=== PATIENT | female | born 1950 | race Caucasian/White ===

== ENCOUNTER 2019-09-23 10:36 | Outpatient (CLI) | payer MEDICARE, SELFPAY ==
--- NOTE | ~2019-09-23 | MM_ITS ---
EXAMINATION: MM screening [facility] BI w altagracia HISTORY: Screening mammogram TECHNIQUE: Craniocaudal and mediolateral oblique 3-D tomosynthesis images were obtained and synthetic 2-D images were generated. CAD analysis was submitted and interpreted. COMPARISON: 6 09/27/2007 bilateral digital screening mammogram BREAST PARENCHYMAL COMPOSITION: There are scattered areas of fibroglandular density. FINDINGS: Scattered benign calcifications. There is no evidence of suspicious mass, calcification, or architectural distortion to suggest malignancy in either breast. There has been no suspicious interv al change. IMPRESSION: 1. No mammographic evidence of malignancy. 2. Recommend routine screening mammography in one year. BI-RADS Category 2: Benign finding(s). Reviewed, dictated and finalized at location A.
== END 2019-09-23 10:37 | disposition home or self-care (01) ==
PROVIDERS: PCP Internal Medicine; Visit Provider Physician Assistant
DX: Z12.31 Encounter for screening mammogram for malignant neoplasm of breast (principal)
CPT/HCPCS: 77063; 77067

== ENCOUNTER 2019-11-06 16:17 | Emergency (ER) | payer MEDICARE, SELFPAY ==
[2019-11-06 16:26] VITALS: BP 155/89; PULSE 98; RESP 16; TEMP 36.3; O2SAT 99
--- NOTE | 2019-11-06 16:26 | ED.SKABFB ---
HPI - Skin/Abscess/Foreign Bdy General Chief complaint: Skin/Abscess/Foreign Body Stated complaint: itchy Time Seen by Provider: 11/06/19 16:33 Source: patient and RN notes reviewed Mode of arrival: ambulatory Limitations: no limitations History of Present Illness HPI narrative: 69-year-old female presents with concern for generalized itching. Reports a history of intermittent chronic itching. Reports she has had multiple work-ups, has found no cause. Reports she has had allergy tests, and has had found no triggers. She denies any hives, swollen lips, swollen tongue, difficulty breathing, difficulty swallowing. Denies fever, nausea, vomiting. MD complaint: other (Pruritus) Related Data Home Medications Medication Instructions Recorded Confirmed glimepiride 2 mg PO BID 01/04/19 01/04/19 metformin 1,000 mg PO BID 01/04/19 01/04/19 omeprazole 40 mg PO DAILY 01/04/19 01/04/19 aspirin 81 mg PO DAILY 11/06/19 11/06/19 tramadol 11/06/19 Allergies Allergy/AdvReac Type Severity Reaction Status Date / Time RAJEEV Inhibitors Allergy Unknown Unknown Verified 01/06/19 08:59 Ccpmwbm-Stc-Jdh Reductase Allergy Unknown Unknown Verified 01/06/19 08:59 Inhibitor Sulfa (Sulfonamide Allergy Unknown Unknown Verified 01/06/19 08:59 Antibiotics) morphine AdvReac Severe NAUSEA AND Verified 01/06/19 08:59 VOMITING erythromycin base AdvReac Mild Nausea and Verified 01/06/19 08:59 Vomiting Review of Systems Review of Systems: Narrative: CONSTITUTIONAL: Denies malaise, chills, sweats, or fever. EYES: Denies visual changes ENT: Denies swollen lips, swollen tongue CARDIOVASCULAR: Denies chest pain, palpitations, or edema. RESPIRATORY: Denies cough or dyspnea. GASTROINTESTINAL: Denies nausea, vomiting, diarrhea SKIN: Denies rash, reports generalized itching. MUSCULOSKELETAL: Denies myalgia. All systems reviewed & are unremarkable except as noted in HPI and below PMFSH Social History Social History Smoking status: Never smoker Alcohol intake: current Comments At time of signature, agree with nursing past medical, surgical, social and family history. There is no relevant family history pertinent to the presenting complaint Exam Narrative: Exam Narrative: GENERAL: Well-appearing, well-nourished, and in no acute distress. HEAD: Normocephalic, atraumatic. EYES: PERRLA, conjunctivae clear ENT: Nares clear. Mucous membranes moist. Oropharynx without edema, erythema or lesions. NECK: Supple. No lymphadenopathy. CHEST: No respiratory distress. Clear to auscultation. No bony deformities, no asymmetry. Speaks in full sentences. HEART: Regular rate and rhythm. No murmur heard. SKIN: Warm, dry, no rash. NEURO: Alert and oriented x3. PSYCH: Normal mood and affect Course Course Emergency Course: Patient is aware of diagnosis, understands and agrees to treatment plan. Anticipatory guidance given. Patient agrees to follow-up as directed and is aware of reasons to seek care at the emergency department. Portions of this record may have been created with voice recognition software Vital Signs Vital signs: Reviewed. MDM - Skin/Abscess/Foreign Bdy MDM Narrative Medical decision making narrative: Does not appear at this time to be erythema multiforme, bullous, SJS, TEN; no evidence at this time to suggest RMSF, endocarditis or Lyme disease; patient looks well, nontoxic and is tolerating oral intake; no neurologic signs or symptoms; no headache, photophobia or neck pain; afebrile; appropriate for initial outpatient treatment; discussed the importance of follow-up, patient agrees; question, viral exanthema, contact dermatitis, allergic dermatitis, eczema, urticaria, pruritus. No soft palate or uvula edema, no tongue, lip edema or other mucosal involvement, no respiratory compromise, no stridor, no wheezing, no wheezing, no history of syncope, no hypotension, no nausea, vomiting, or
[2019-11-06] MEDS: methylPREDNISolone SOD SUCC 125 MG VIAL IM (16:44)
== END 2019-11-06 17:04 | disposition home or self-care (01) ==
PROVIDERS: Emergency Provider Nurse Practitioner; PCP Physician Assistant
DX: L29.8 Other pruritus (principal); I10 Essential (primary) hypertension; E11.9 Type 2 diabetes mellitus without complications; Z79.84 Long term (current) use of oral hypoglycemic drugs
CPT/HCPCS: 96372; 99213; G0463; J2930

== ENCOUNTER 2020-02-10 12:18 | Outpatient (CLI) | payer MEDICARE, SELFPAY ==
--- NOTE | 2020-02-10 | ECHO_ITS ---
Patient Info Name: Heather Palmer Age: 69 years : 1950 Gender: Female Ht: 62 in Wt: 170 lbs BSA: 1.87 m2 HR: 76 bpm BP: 190 / 112 mmHg Heart Rhythm: Sinus Rhythm Technical Quality: Good Exam Date: 02/10/2020 1:18 PM Exam Location: [facility] Patient Status: Outpatient Admit Date: 02/10/2020 Staff Ordering Physician: GuevaraReyna PA-C Line Mover: Ehsan Quintanilla, JOHN, RT Attending Provider: Carlos AReyna PA-C Exam Type: CA echo doppler color flow Study Info Indications R01.1 - Cardiac murmur, unspecified Complete two-dimensional, color flow and Doppler transthoracic echocardiogram is performed. Summary 1. Complete two-dimensional, color flow and Doppler transthoracic echocardiogram is performed. 2. Left ventricular chamber dimension is normal. 3. Left ventricular systolic function is normal, estimated at 60-65%. 4. There is mildly increased left ventricular wall thickness. 5. The left ventricular diastolic function is grade I diastolic dysfunction. 6. Left atrial chamber dimension is mildly enlarged. 7. There is mild aortic valve stenosis with a peak velocity of 147 cm/s, mean gradient of 5 mmHg, and aortic valve area of 1.8 cm2. 8. There is mild to moderate aortic valve regurgitation. 9. There is mild mitral valve regurgitation. 10. There is mild tricuspid valve regurgitation. Left Ventricle Left ventricular chamber dimension is normal. Left ventricular systolic function is normal, estimated at 60-65%. There is mildly increased left ventricular wall thickness. The left ventricular diastolic function is grade I diastolic dysfunction. Right Ventricle Right ventricular chamber dimension is normal. Right ventricular systolic function is normal. Left Atria Left atrial chamber dimension is mildly enlarged. Right Atria Right atrial chamber dimension is normal. Atrial Septum Intact interatrial septum visualized by color flow imaging. Aortic Valve The aortic valve is not well visualized. There is mild aortic valve stenosis with a peak velocity of 147 cm/s, mean gradient of 5 mmHg, and aortic valve area of 1.8 cm2. There is mild to moderate aortic valve regurgitation. Pulmonic Valve The pulmonic valve is normal. There is no pulmonic valve stenosis. There is trace pulmonic regurgitation. Mitral Valve The mitral valve has normal leaflets. There is no mitral valve stenosis. There is mild mitral valve regurgitation. Tricuspid Valve The tricuspid valve leaflets are normal. There is no significant tricuspid valve stenosis. There is mild tricuspid valve regurgitation. No pulmonary hypertension, estimated pulmonary arterial systolic pressure is 28 mmHg. Pericardium/Pleural The pericardium appears normal. There is trivial pericardial effusion. Inferior Vena Cava Normal inferior vena cava with >50% collapse upon inspiration consistent with normal right atrial pressure, 5 mmHg. Aorta The aortic root size at the sinus of Valsalva is normal. The prox ascending aorta size is normal. Left Ventricular Outflow Tract Name Value Normal LVOT 2D LVOT Diameter 1.9 cm LVOT Doppler
== END 2020-02-10 12:19 | disposition home or self-care (01) ==
PROVIDERS: PCP Physician Assistant; Visit Provider Physician Assistant
DX: R01.1 Cardiac murmur, unspecified (principal); I34.0 Nonrheumatic mitral (valve) insufficiency; I35.1 Nonrheumatic aortic (valve) insufficiency; I36.1 Nonrheumatic tricuspid (valve) insufficiency
CPT/HCPCS: 93306

== ENCOUNTER 2020-05-08 11:29 | Emergency (ER) | payer MEDICARE, SELFPAY ==
--- NOTE | ~2020-05-08 | XR_ITS ---
EXAMINATION: XR knee LT min 4V, XR tibia fibula LT 2V EXAM DATE: 05/08/2020 12:34 (accession [id number]), 05/08/2020 12:35 (accession [id number]) INDICATION: Fall, lt knee pain . Initial encounter. TECHNIQUE: Left knee frontal, crosstable lateral, orthogonal oblique projections for interpretation. Frontal and lateral projections left tibia/fibula. Comparison is made to prior examination from . FINDINGS: There is total left knee arthroplasty hardware in expected position. Possible small joint effusion. There are no acute knee, tibia or fibula fractures or dislocations identified. There is no subcutaneous gas. IMPRESSION: Intact left knee arthroplasty. Possible small knee joint effusion. Reviewed, dictated and finalized at location A. IMPRESSION: Intact left knee arthroplasty. Possible small knee joint effusion.
[2020-05-08 11:53] VITALS: BP 147/98; PULSE 89; RESP 18; TEMP 36.2; O2SAT 100
--- NOTE | 2020-05-08 12:14 | ED.GENADULT ---
HPI - General Adult General Chief complaint: Extremity Injury, Lower Stated complaint: Left Calf Pain Time Seen by Provider: 05/08/20 12:14 Source: patient Mode of arrival: ambulatory Limitations: no limitations History of Present Illness HPI narrative: 70-year-old female patient presents to the [facility] with complaints of left leg pain. Patient states this morning about 8 AM her dog tripped her and she fell down 8 or 9 steps. Denies hitting her head or loss of consciousness. Patient states she has been having some left calf pain since then. Patient states she did try taking some tramadol that she had had at home as well as icing it. Related Data Home Medications Medication Instructions Recorded Confirmed glimepiride 2 mg PO BID 01/04/19 05/08/20 metformin 1,000 mg PO BID 01/04/19 05/08/20 omeprazole 40 mg PO DAILY 01/04/19 05/08/20 aspirin 81 mg PO DAILY 11/06/19 05/08/20 tramadol 11/06/19 Allergies Allergy/AdvReac Type Severity Reaction Status Date / Time RAJEEV Inhibitors Allergy Unknown Unknown Verified 05/08/20 11:44 Ukpvelq-Nli-Ups Reductase Allergy Unknown Unknown Verified 05/08/20 11:44 Inhibitor Sulfa (Sulfonamide Allergy Unknown Unknown Verified 05/08/20 11:44 Antibiotics) morphine AdvReac Severe NAUSEA AND Verified 05/08/20 11:44 VOMITING erythromycin base AdvReac Mild Nausea and Verified 05/08/20 11:44 Vomiting Review of Systems Review of Systems: Narrative: CONSTITUTIONAL: Denies fever, chills, or sweats. EYES: Denies visual changes, redness, or discharge. ENT: Denies rhinorrhea, congestion, sore throat, or otalgia. CARDIOVASCULAR: Denies chest pain, palpitations, or edema. RESPIRATORY: Denies cough or dyspnea. GASTROINTESTINAL: Denies abdominal pain, nausea, vomiting, or diarrhea. GENITOURINARY: Denies dysuria or hematuria. SKIN: Denies rash or itching. MUSCULOSKELETAL: Denies back pain, joint pain, or myalgia. Positive left leg pain. NEUROLOGIC: Denies headache, numbness, or weakness. PSYCHIATRIC: Denies anxiety or depression. [facility] Past Medical History Medical History (Updated 05/08/20 @ 12:54 by GRAHAM Duque) Anemia DDD (degenerative disc disease) Depression Diabetes mellitus GERD (gastroesophageal reflux disease) HLD (hyperlipidemia) HTN (hypertension) Osteoarthritis Seasonal allergies Ulcer Surgical History Surgical History H/O arthroscopy of left knee H/O basal cell carcinoma excision H/O colonoscopy H/O spinal fusion H/O: hysterectomy History of bilateral knee replacement History of bladder surgery History of laminectomy Hx of appendectomy Hx of cholecystectomy Hx of tonsillectomy Family History Family History Mother Family history of diabetes mellitus in first degree relative Family history of lung cancer Father Family history of lung cancer Social History Social History Smoking status: Never smoker Alcohol intake: current Gender identity (if verbalized by the patient): Female Comments At the time of my signature I agree with nursing past medical history, surgical, social, and family history. There is no relevant family history pertinent to the presenting complaint. Exam Narrative: Exam Narrative: GENERAL: Well-appearing, well-nourished, and in no acute distress. HEAD: Normocephalic, atraumatic. EYES: PERRLA and EOMI. ENT: Nares clear, no rhinorrhea or epistaxis. Mucous membranes moist. NECK: Supple. No lymphadenopathy CHEST: Clear to auscultation. No respiratory distress. HEART: Regular rate and rhythm. No murmur heard. Normal peripheral pulses. ABDOMEN: Soft, nontender, nondistended, normal active bowel sounds. EXTREMITIES: Patient is able to bear weight and ambulate with pain left lower leg. No surface trauma, STS, or obvious effusion. No overlying erythema or war
== END 2020-05-08 12:58 | disposition home or self-care (01) ==
PROVIDERS: Emergency Provider Nurse Practitioner Family; PCP Physician Assistant
DX: M79.662 Pain in left lower leg (principal); M25.462 Effusion, left knee; Z96.653 Presence of artificial knee joint, bilateral; E11.9 Type 2 diabetes mellitus without complications; K21.9 Gastro-esophageal reflux disease without esophagitis; E78.5 Hyperlipidemia, unspecified; I10 Essential (primary) hypertension; M19.90 Unspecified osteoarthritis, unspecified site
CPT/HCPCS: 73564; 73590; 99214; G0463

== ENCOUNTER 2020-05-10 10:24 | Outpatient (CLI) | payer MEDICARE, SELFPAY ==
--- NOTE | ~2020-05-10 | US_ITS ---
EXAMINATION: US venous doppler [facility] EXAM DATE: 05/10/2020 10:56 INDICATION: Left calf pain. TECHNIQUE: Multiple grayscale, color flow and Doppler images of the left lower extremity deep venous system were obtained and reviewed. Comparison is made to prior examination from 02/19/2015. FINDINGS: The left common femoral, femoral and profunda veins demonstrate normal color flow, respirat ory variation, augmentation and compressibility. Compressibility, color flow confirmed within the le ft popliteal, posterior tibial, peroneal, and greater saphenous veins. IMPRESSION: 1. No left lower extremity deep venous thrombosis. Reviewed, dictated and finalized at location A.
== END 2020-05-10 10:25 | disposition home or self-care (01) ==
PROVIDERS: PCP Physician Assistant; Visit Provider Physician Assistant
DX: M79.662 Pain in left lower leg (principal)
CPT/HCPCS: 93971

== ENCOUNTER 2020-08-17 13:20 | Emergency (ER) | payer MEDICARE, SELFPAY ==
[2020-08-17 13:29] VITALS: BP 153/94; PULSE 73; RESP 16; TEMP 36.5; O2SAT 99
--- NOTE | 2020-08-17 14:03 | ED.URI ---
HPI - URI/Sore Throat General Chief Complaint: Upper Respiratory Infection Stated Complaint: sinus infection Time Seen by Provider: 08/17/20 13:38 Source: patient and RN notes reviewed Mode of arrival: ambulatory Limitations: no limitations History of Present Illness HPI Narrative: Patient presents today with a 2-day history of sinus pressure, productive cough, eye watering, headache, postnasal drip, ear popping. Denies shortness of breath or fever. She has been taking ibuprofen, Benadryl, and Flonase. Reports the Flonase is not helping her much and the Benadryl is providing some mild relief. She is getting ready to go on vacation in a couple of days and believes that she may have a sinus infection and wanted to get started on some antibiotics if she needed them. Related Data Home Medications Medication Instructions Recorded Confirmed metformin 1,000 mg PO BID 01/04/19 05/08/20 omeprazole 40 mg PO DAILY 01/04/19 05/08/20 duloxetine [Cymbalta] 30 mg PO DAILY 08/17/20 08/17/20 glimepiride [Amaryl] 1 mg PO DAILY 08/17/20 08/17/20 Allergies Allergy/AdvReac Type Severity Reaction Status Date / Time RAJEEV Inhibitors Allergy Unknown Unknown Verified 05/08/20 11:44 Lbyikss-Lmv-Whi Reductase Allergy Unknown Unknown Verified 05/08/20 11:44 Inhibitor Sulfa (Sulfonamide Allergy Unknown Unknown Verified 08/17/20 13:32 Antibiotics) morphine AdvReac Severe NAUSEA AND Verified 05/08/20 11:44 VOMITING erythromycin base AdvReac Mild Nausea and Verified 05/08/20 11:44 Vomiting Review of Systems Review of Systems: Narrative: CONSTITUTIONAL: Denies body aches, fever, chills, or sweats. EYES: Denies visual changes, redness, or discharge.+ Eye watering ENT: + Sinus pressure, postnasal drip, rhinorrhea. CARDIOVASCULAR: Denies chest pain, palpitations, or edema. RESPIRATORY: Denies dyspnea.+ Cough GASTROINTESTINAL: Denies abdominal pain, nausea, vomiting, or diarrhea. GENITOURINARY: Denies dysuria or hematuria. SKIN: Denies rash, itching, or wounds. MUSCULOSKELETAL: Denies back pain, joint pain, or myalgia. NEUROLOGIC: Denies numbness, tingling, or weakness.+ Headache PSYCH: Denies depression or anxiety. PMFSH Past Medical History Medical History (Updated 08/17/20 @ 14:08 by Vanessa Barcenas, GRAHAM, ) Anemia DDD (degenerative disc disease) Depression Diabetes mellitus GERD (gastroesophageal reflux disease) HLD (hyperlipidemia) HTN (hypertension) Osteoarthritis Seasonal allergies Ulcer Surgical History Surgical History H/O arthroscopy of left knee H/O basal cell carcinoma excision H/O colonoscopy H/O spinal fusion H/O: hysterectomy History of bilateral knee replacement History of bladder surgery History of laminectomy Hx of appendectomy Hx of cholecystectomy Hx of tonsillectomy Family History Family History Mother Family history of diabetes mellitus in first degree relative Family history of lung cancer Father Family history of lung cancer Social History Social History Smoking status: Never smoker Alcohol intake: current Gender identity (if verbalized by the patient): Female Comments At time of signature, I have reviewed and agree with nursing past medical, surgical, social and family history unless otherwise noted. Please see nursing chart for further information. There is no relevant family history pertinent to the presenting complaint Exam Narrative: Exam Narrative: GENERAL: Well-appearing, well-nourished, and in no acute distress. HEAD: Normocephalic, atraumatic. EYES: EOMI. PERRL. No redness or drainage. Conjunctivae normal. ENT: Mucous membranes pink and moist. Nares mildly congested. Bilateral nasal turbinates are slightly edematous without erythema. Moderate amount of clear thick postnasal drain
== END 2020-08-17 14:10 | disposition home or self-care (01) ==
PROVIDERS: Emergency Provider Nurse Practitioner; PCP Physician Assistant
DX: J30.9 Allergic rhinitis, unspecified (principal); F32.9 Major depressive disorder, single episode, unspecified; E11.9 Type 2 diabetes mellitus without complications; K21.9 Gastro-esophageal reflux disease without esophagitis; E78.5 Hyperlipidemia, unspecified; I10 Essential (primary) hypertension; M19.90 Unspecified osteoarthritis, unspecified site; Z96.653 Presence of artificial knee joint, bilateral; Z85.828 Personal history of other malignant neoplasm of skin
CPT/HCPCS: 99213; G0463

== ENCOUNTER 2020-10-08 15:01 | Outpatient (CLI) | payer MEDICARE, SELFPAY ==
--- NOTE | ~2020-10-08 | MM_ITS ---
EXAMINATION: MM screening [facility] BI w altagracia HISTORY: Screening mammogram TECHNIQUE: Craniocaudal and mediolateral oblique 3-D tomosynthesis images were obtained and synthetic 2-D images were generated. CAD analysis was submitted and interpreted. COMPARISON: 09/23/2019, 09/27/2007 BREAST PARENCHYMAL COMPOSITION: There are scattered areas of fibroglandular density. FINDINGS: Scattered benign-appearing calcifications are present. There is no evidence of suspicious m ass, calcification, or architectural distortion to suggest malignancy in either breast. There has bee n no suspicious interval change. IMPRESSION: 1. No mammographic evidence of malignancy. 2. Recommend routine screening mammography in one year. BI-RADS Category 2: Benign finding(s). Reviewed, dictated and finalized at location A.
== END 2020-10-08 15:02 | disposition home or self-care (01) ==
PROVIDERS: PCP Physician Assistant; Visit Provider Physician Assistant
DX: Z12.31 Encounter for screening mammogram for malignant neoplasm of breast (principal)
CPT/HCPCS: 77063; 77067

== ENCOUNTER 2020-12-30 08:03 | Emergency (ER) | payer MEDICARE, SELFPAY ==
[2020-12-30 08:15] VITALS: BP 208/76; PULSE 77; RESP 16; TEMP 37.2; O2SAT 99
--- NOTE | 2020-12-30 08:41 | ED.GENADULT ---
HPI - General Adult General Stated complaint: Under breast Pain Time Seen by Provider: 12/30/20 08:25 Source: patient and RN notes reviewed Mode of arrival: ambulatory Limitations: no limitations History of Present Illness HPI narrative: Patient presents today with a 10-day history of right upper chest pain radiating under the right breast with deep breath and movement. Denies any injury, trauma, or recent illness. She is pain-free at rest, but increases to 5/10 with movement, cough, or deep breath. Patient had a mammogram last month that was normal. Denies shortness of breath MD complaint: Chest wall pain Related Data Home Medications Medication Instructions Recorded Confirmed metformin 1,000 mg PO BID 01/04/19 12/30/20 omeprazole 40 mg PO DAILY 01/04/19 12/30/20 duloxetine [Cymbalta] 30 mg PO DAILY 08/17/20 12/30/20 glimepiride [Amaryl] 1 mg PO DAILY 08/17/20 12/30/20 Allergies Allergy/AdvReac Type Severity Reaction Status Date / Time RAJEEV Inhibitors Allergy Unknown Unknown Verified 12/30/20 08:27 Dcmbhdz-SQS-PgI Reductase Allergy Unknown Unknown Verified 12/30/20 08:27 Inhibitor [Hwegbrh-Axo-Djm Reductase Inhibitor] Sulfa (Sulfonamide Allergy Unknown Unknown Verified 12/30/20 08:27 Antibiotics) morphine AdvReac Severe NAUSEA AND Verified 12/30/20 08:27 VOMITING erythromycin base AdvReac Mild Nausea and Verified 12/30/20 08:27 Vomiting Review of Systems Review of Systems: CONSTITUTIONAL: Denies body aches, fever, chills, or sweats. EYES: Denies visual changes, redness, or discharge. ENT: Denies rhinorrhea, congestion, sore throat, or otalgia. CARDIOVASCULAR: Denies chest pain, palpitations, or edema. RESPIRATORY: Denies cough or dyspnea. GASTROINTESTINAL: Denies abdominal pain, nausea, vomiting, or diarrhea. GENITOURINARY: Denies dysuria or hematuria. SKIN: Denies rash, itching, or wounds. MUSCULOSKELETAL: Denies back pain, joint pain, or myalgia.+ Chest wall pain NEUROLOGIC: Denies headache, numbness, tingling, or weakness. PSYCH: Denies depression or anxiety. [facility], [facility] Past Medical History Medical History (Updated 12/30/20 @ 08:46 by Vanessa Barcenas, GRAHAM, ) Anemia DDD (degenerative disc disease) Depression Diabetes mellitus GERD (gastroesophageal reflux disease) HLD (hyperlipidemia) HTN (hypertension) Osteoarthritis Seasonal allergies Ulcer Surgical History Surgical History H/O arthroscopy of left knee H/O basal cell carcinoma excision H/O colonoscopy H/O spinal fusion H/O: hysterectomy History of bilateral knee replacement History of bladder surgery History of laminectomy Hx of appendectomy Hx of cholecystectomy Hx of tonsillectomy Family History Family History Mother Family history of diabetes mellitus in first degree relative Family history of lung cancer Father Family history of lung cancer Social History Social History Smoking status: Never smoker Alcohol intake: current Gender identity (if verbalized by the patient): Female Comments At time of signature, I have reviewed and agree with nursing past medical, surgical, social and family history unless otherwise noted. Please see nursing chart for further information. There is no relevant family history pertinent to the presenting complaint Exam Narrative: GENERAL: Well-appearing, well-nourished, and in no acute distress. HEAD: Normocephalic, atraumatic. EYES: EOMI. No redness or drainage. Conjunctivae normal. ENT: Mucous membranes pink and moist. NECK: Normal AROM. CHEST: No respiratory distress. Clear to auscultation. Tenderness to the superior right breast extending to the right sternal border, then under the right breast laterally. Primary tenderness is along the sternal border. No deformity or crepitus
== END 2020-12-30 08:50 | disposition home or self-care (01) ==
LOC: EXPCOLL 08:06
PROVIDERS: Emergency Provider Nurse Practitioner; PCP Physician Assistant
DX: R09.1 Pleurisy (principal); E11.9 Type 2 diabetes mellitus without complications; K21.9 Gastro-esophageal reflux disease without esophagitis; E78.5 Hyperlipidemia, unspecified; I10 Essential (primary) hypertension; M19.90 Unspecified osteoarthritis, unspecified site; F32.A Depression, unspecified; Z96.653 Presence of artificial knee joint, bilateral; Z85.828 Personal history of other malignant neoplasm of skin
CPT/HCPCS: 99211; G0463

== ENCOUNTER 2021-03-04 09:46 | Emergency (ER) | payer MEDICARE, SELFPAY ==
[2021-03-04 09:55] VITALS: BP 184/82; PULSE 72; RESP 18; TEMP 35.9; O2SAT 100
--- NOTE | 2021-03-04 10:25 | ED.SKABFB ---
HPI - Skin/Abscess/Foreign Bdy General Chief complaint: Skin/Abscess/Foreign Body Stated complaint: rash Source: patient Mode of arrival: ambulatory Limitations: no limitations History of Present Illness HPI narrative: 70-year-old female presenting for complaint of itching all over her body since yesterday. She endorses extra histamines and has been seen in the past by an fire code inspector. She currently denies any rash or lesions to her skin. She states she thinks her eyes are swollen and have closed up in the past. Endorses lips feel numb. No lip swelling, tongue swelling, or difficulty breathing reported. hx drug allergies. States she takes Atarax sometimes. denies change to soap, detergent, lotion, meds etc. Related Data Home Medications Medication Instructions Recorded Confirmed metformin 1,000 mg PO BID 01/04/19 03/04/21 omeprazole 40 mg PO DAILY 01/04/19 03/04/21 duloxetine [Cymbalta] 30 mg PO DAILY 08/17/20 03/04/21 glimepiride [Amaryl] 1 mg PO DAILY 08/17/20 03/04/21 Allergies Allergy/AdvReac Type Severity Reaction Status Date / Time RAJEEV Inhibitors Allergy Unknown Unknown Verified 03/04/21 10:10 Fhgsksi-ISB-DeB Reductase Allergy Unknown Unknown Verified 03/04/21 10:10 Inhibitor [Tzmqpxf-Yvu-Fwr Reductase Inhibitor] Sulfa (Sulfonamide Allergy Unknown Unknown Verified 03/04/21 10:10 Antibiotics) morphine AdvReac Severe NAUSEA AND Verified 03/04/21 10:10 VOMITING erythromycin base AdvReac Mild Nausea and Verified 03/04/21 10:10 Vomiting Review of Systems Review of Systems: CONSTITUTIONAL: Denies body aches, fever, chills, or sweats. EYES: Denies visual changes, redness, or discharge. ENT: Denies rhinorrhea, congestion, sore throat, or otalgia. CARDIOVASCULAR: Denies chest pain, palpitations, or edema. RESPIRATORY: Denies cough or dyspnea. GASTROINTESTINAL: Denies abdominal pain, nausea, vomiting, or diarrhea. GENITOURINARY: Denies dysuria or hematuria. SKIN: endorses rash, itching MUSCULOSKELETAL: Denies back pain, joint pain, or myalgia. NEUROLOGIC: Denies headache, numbness, tingling, or weakness. PSYCH: Denies depression or anxiety. [facility] Past Medical History Medical History Anemia DDD (degenerative disc disease) Depression Diabetes mellitus GERD (gastroesophageal reflux disease) HLD (hyperlipidemia) HTN (hypertension) Osteoarthritis Seasonal allergies Ulcer Surgical History Surgical History H/O arthroscopy of left knee H/O basal cell carcinoma excision H/O colonoscopy H/O spinal fusion H/O: hysterectomy History of bilateral knee replacement History of bladder surgery History of laminectomy Hx of appendectomy Hx of cholecystectomy Hx of tonsillectomy Family History Family History Mother Family history of diabetes mellitus in first degree relative Family history of lung cancer Father Family history of lung cancer Social History Social History Smoking status: Never smoker Alcohol intake: current Gender identity (if verbalized by the patient): Female Comments At time of signature, I have reviewed and agree with nursing past medical, surgical, social and family history unless otherwise noted. Please see nursing chart for further information. There is no relevant family history pertinent to the presenting complaint Exam Narrative: GENERAL: Well-appearing, well-nourished, and in no acute distress. HEAD: Normocephalic, atraumatic. EYES: EOMI. No redness or drainage. Conjunctivae normal. ENT: Mucous membranes pink and moist. No rhinorrhea. NECK: Normal AROM. Supple. CHEST: No respiratory distress. Clear to auscultation. HEART: Regular rate and rhythm. No murmur appreciated. Normal peripheral pulses. ABDOMEN: Soft, nont
[2021-03-04] MEDS: methylPREDNISolone ACETATE 40 MG/ML VIAL IM (10:48)
== END 2021-03-04 11:02 | disposition home or self-care (01) ==
PROVIDERS: Emergency Provider Nurse Practitioner Family; PCP Physician Assistant
DX: L29.9 Pruritus, unspecified (principal); E11.9 Type 2 diabetes mellitus without complications; K21.9 Gastro-esophageal reflux disease without esophagitis; E78.5 Hyperlipidemia, unspecified; I10 Essential (primary) hypertension; M19.90 Unspecified osteoarthritis, unspecified site; Z96.653 Presence of artificial knee joint, bilateral; Z85.828 Personal history of other malignant neoplasm of skin; Z79.84 Long term (current) use of oral hypoglycemic drugs
CPT/HCPCS: 96372; 99213; G0463; J1030

== ENCOUNTER 2021-04-28 08:04 | Emergency (ER) | payer MEDICARE, SELFPAY ==
--- NOTE | 2021-04-28 08:12 | ED.URI ---
HPI - URI/Sore Throat General Chief Complaint: Upper Respiratory Infection Stated Complaint: Sinus Time Seen by Provider: 04/28/21 08:14 Source: patient, family, RN notes reviewed and old records reviewed Mode of arrival: ambulatory Limitations: no limitations History of Present Illness HPI Narrative: 71-year-old female presents to the [facility] with complaints of nasal congestion, rhinorrhea. States she did not sleep well last night due to nasal congestion. Reports that she has taken a Z-[place] at the start of these symptoms 2 weeks ago. Has not been using her Flonase. Denies any fevers, chest pain or abdominal pain. Reports having an appointment with ENT for her excess atilio YOUSSEF elicited complaint: rhinorrhea and nasal congestion Related Data Home Medications Medication Instructions Recorded Confirmed metformin 1,000 mg PO BID 01/04/19 04/28/21 omeprazole 40 mg PO DAILY 01/04/19 04/28/21 duloxetine [Cymbalta] 30 mg PO DAILY 08/17/20 04/28/21 glimepiride [Amaryl] 1 mg PO DAILY 08/17/20 04/28/21 Allergies Allergy/AdvReac Type Severity Reaction Status Date / Time RAJEEV Inhibitors Allergy Unknown Unknown Verified 04/28/21 08:45 Xmawpqb-URX-ZgG Reductase Allergy Unknown Unknown Verified 04/28/21 08:45 Inhibitor [Ttnlkbq-Nzi-Vtd Reductase Inhibitor] Sulfa (Sulfonamide Allergy Unknown Unknown Verified 04/28/21 08:45 Antibiotics) morphine AdvReac Severe NAUSEA AND Verified 04/28/21 08:45 VOMITING erythromycin base AdvReac Mild Nausea and Verified 04/28/21 08:45 Vomiting Review of Systems Review of Systems: All systems reviewed & are unremarkable except as noted in HPI and below Constitutional: Constitutional: Reports no additional constitutional complaints, Denies chills, Denies fever(s) and Denies headache(s) Eyes: Eyes: Reports no additional eye complaints ENT: Reports as per HPI, Denies vertigo, Denies dizziness, Denies headache(s), Reports nasal congestion and Denies sore throat Cardiovascular: Cardiovascular: Reports no additional cardiovascular complaints, Denies chest pain, Denies syncope, Denies rapid heart rate and Denies dyspnea Respiratory: Respiratory: Reports no additional respiratory complaints, Denies cough, Denies dyspnea and Denies wheezing Gastrointestinal: Gastrointestinal: Reports no additional gastrointestinal complaints, Denies abdominal pain, Denies diarrhea, Denies nausea and Denies vomiting Musculoskeletal: Musculoskeletal: Reports no additional musculoskeletal complaints and Denies numbness Integumentary/Breasts: Skin/Breast: Reports system reviewed and no additional complaints, except as docu Neurologic: Reports system reviewed and no additional complaints, except as documented, Denies vertigo, Denies dizziness, Denies syncope, Denies headache(s), Denies focal weakness and Denies numbness Psychiatric: Psychiatric: Reports no additional psychiatric complaints Allergic/Immunologic: Allergic/Immunologic: Reports no additional allergic/immunologic complaints and Denies wheezing PMFSH Past Medical History Medical History (Updated 04/29/21 @ 14:54 by Katalina Jon, [employer]) Anemia DDD (degenerative disc disease) Depression Diabetes mellitus GERD (gastroesophageal reflux disease) HLD (hyperlipidemia) HTN (hypertension) Osteoarthritis Seasonal allergies Ulcer Surgical History Surgical History H/O arthroscopy of left knee H/O basal cell carcinoma excision H/O colonoscopy H/O spinal fusion H/O: hysterectomy History of bilateral knee replacement History of bladder surgery History of laminectomy Hx of appendectomy Hx of cholecystectomy Hx of tonsillectomy Family History Family History Mother Family history of diabetes mellitus in first degree relative Family history of lung cancer Father Family history of lung cancer Social History Social H
[2021-04-28 08:14] VITALS: BP 179/87; PULSE 80; RESP 18; TEMP 35.8; O2SAT 100
== END 2021-04-28 08:31 | disposition home or self-care (01) ==
PROVIDERS: Emergency Provider Nurse Practitioner; PCP Physician Assistant
DX: R09.82 Postnasal drip (principal); H61.23 Impacted cerumen, bilateral; J30.89 Other allergic rhinitis; E11.9 Type 2 diabetes mellitus without complications; E78.5 Hyperlipidemia, unspecified; I10 Essential (primary) hypertension; M19.90 Unspecified osteoarthritis, unspecified site; Z96.653 Presence of artificial knee joint, bilateral; F32.A Depression, unspecified; Z79.84 Long term (current) use of oral hypoglycemic drugs
CPT/HCPCS: 99213; G0463

== ENCOUNTER 2021-07-21 11:49 | Emergency (ER) | payer MEDICARE, SELFPAY ==
[2021-07-21 12:30] VITALS: BP 224/90; PULSE 76; RESP 18; TEMP 37; O2SAT 98
--- NOTE | 2021-07-21 12:58 | ED.SKABFB ---
HPI - Skin/Abscess/Foreign Bdy General Chief complaint: Skin/Abscess/Foreign Body Stated complaint: Rash on Leg Time Seen by Provider: 07/21/21 12:58 Source: patient Mode of arrival: ambulatory Limitations: no limitations History of Present Illness HPI narrative: 71-year-old female presents with itchy rash to left lower extremity for 3 days. Denies pain. Is concerned that she has a poison benoit or poison oak. Started after doing yard work. No other symptoms. Would like a steroid shot. All systems reviewed and negative except as noted above. Related Data Home Medications Medication Instructions Recorded Confirmed metformin 500 mg tablet,extended 1,000 mg PO BID 01/04/19 07/21/21 release 24 hr omeprazole 40 mg capsule,delayed 40 mg PO DAILY 01/04/19 07/21/21 release duloxetine 30 mg capsule,delayed 30 mg PO DAILY 08/17/20 07/21/21 release (Cymbalta) glimepiride 1 mg tablet (Amaryl) 1 mg PO DAILY 08/17/20 07/21/21 Allergies Allergy/AdvReac Type Severity Reaction Status Date / Time RAJEEV Inhibitors Allergy Unknown Unknown Verified 07/21/21 12:05 Enruiiz-NHB-UkM Reductase Allergy Unknown Unknown Verified 07/21/21 12:05 Inhibitor [Vktsdca-Szr-Ivu Reductase Inhibitor] Sulfa (Sulfonamide Allergy Unknown Unknown Verified 07/21/21 12:05 Antibiotics) morphine AdvReac Severe NAUSEA AND Verified 07/21/21 12:05 VOMITING erythromycin base AdvReac Mild Nausea and Verified 07/21/21 12:05 Vomiting Review of Systems Review of Systems: CONSTITUTIONAL: Denies fever, chills, or sweats. EYES: Denies visual changes, redness, or discharge. ENT: Denies rhinorrhea, congestion, sore throat, or otalgia. CARDIOVASCULAR: Denies chest pain, palpitations, or edema. RESPIRATORY: Denies cough or dyspnea. GASTROINTESTINAL: Denies abdominal pain, nausea, vomiting, or diarrhea. GENITOURINARY: Denies dysuria or hematuria. SKIN: Reports itchy rash to left lower leg. MUSCULOSKELETAL: Denies back pain, joint pain, or myalgia. NEUROLOGIC: Denies headache, numbness, or weakness. PSYCHIATRIC: Denies anxiety or depression. All other systems reviewed are negative, except as documented in HPI. [facility] Past Medical History Medical History (Updated 07/21/21 @ 13:09 by Yana Blandon NP) Anemia DDD (degenerative disc disease) Depression Diabetes mellitus GERD (gastroesophageal reflux disease) HLD (hyperlipidemia) HTN (hypertension) Osteoarthritis Seasonal allergies Ulcer Surgical History Surgical History H/O arthroscopy of left knee H/O basal cell carcinoma excision H/O colonoscopy H/O spinal fusion H/O: hysterectomy History of bilateral knee replacement History of bladder surgery History of laminectomy Hx of appendectomy Hx of cholecystectomy Hx of tonsillectomy Family History Family History Mother Family history of diabetes mellitus in first degree relative Family history of lung cancer Father Family history of lung cancer Social History Social History Smoking status: Never smoker Alcohol intake: current Gender identity (if verbalized by the patient): Female Comments At time of signature, agree with nursing past medical, surgical, social and family history. There is no relevant family history pertinent to the presenting complaint. Exam Narrative: GENERAL: This is a well-nourished, well-developed patient, in no apparent distress. HEAD: normocephalic, atraumatic. EYES: PERRL. Sclera clear/white. Vision is grossly intact. EARS: External ears normal NOSE: External nose normal NECK: Neck supple, non-tender without lymphadenopathy, masses or thyromegaly. CARDIOVASCULAR: Regular rate and rhythm without murmurs, gallops, or rubs. RESPIRATORY: Clear to auscultation. Breath sounds equal bilaterally. No wheezes, rales, or rhonchi. SKIN
[2021-07-21] MEDS: methylPREDNISolone SOD SUCC 125 MG VIAL IM (13:16)
[2021-07-21 13:35] VITALS: BP 171/93
== END 2021-07-21 13:35 | disposition home or self-care (01) ==
PROVIDERS: Emergency Provider Nurse Practitioner Family; PCP Physician Assistant
DX: L25.9 Unspecified contact dermatitis, unspecified cause (principal); E11.9 Type 2 diabetes mellitus without complications; K21.9 Gastro-esophageal reflux disease without esophagitis; E78.5 Hyperlipidemia, unspecified; I10 Essential (primary) hypertension; M19.90 Unspecified osteoarthritis, unspecified site; Z96.653 Presence of artificial knee joint, bilateral; Z79.84 Long term (current) use of oral hypoglycemic drugs; Z85.828 Personal history of other malignant neoplasm of skin
CPT/HCPCS: 96372; 99213; G0463; J2930

== ENCOUNTER 2021-08-08 00:12 | Emergency (ER) | payer MEDICARE, SELFPAY ==
[2021-08-08 00:21] VITALS: BP 153/98; PULSE 76; RESP 18; TEMP 36.3; O2SAT 99
[2021-08-08] MEDS: methylPREDNISolone SOD SUCC 125 MG VIAL IM (01:12)
--- NOTE | 2021-08-08 01:15 | ED.ALLEREA ---
HPI - Allergic Reaction General Chief complaint: Allergic Reaction Stated complaint: allergic reaction Time Seen by Provider: 08/08/21 00:29 Source: patient Mode of arrival: ambulatory Limitations: no limitations History of Present Illness HPI narrative: 71-year-old with a history of hypertension, diabetes here with complaints of having hives on her lower extremities and head neck and on upper extremities. Patient states that she took doxycycline for cellulitis of her lower legs. Patient states that the rash on the lower extremities has markedly improved with antibiotics however she developed itching and hives with the doxycycline. She denies any shortness of breath or chest pain. MD complaint: allergic reaction Onset (ago): hour(s) (2) Exposure: medication (Doxycycline) Symptoms: rash and itching Severity: mild Treatment prior to arrival: none Previous Allergic Reaction History: none Related Data Home Medications Medication Instructions Recorded Confirmed metformin 500 mg tablet,extended 1,000 mg PO BID 01/04/19 07/21/21 release 24 hr omeprazole 40 mg capsule,delayed 40 mg PO DAILY 01/04/19 07/21/21 release duloxetine 30 mg capsule,delayed 30 mg PO DAILY 08/17/20 07/21/21 release (Cymbalta) glimepiride 1 mg tablet (Amaryl) 1 mg PO DAILY 08/17/20 07/21/21 Allergies Allergy/AdvReac Type Severity Reaction Status Date / Time RAJEEV Inhibitors Allergy Unknown Unknown Verified 07/21/21 12:05 Rcqoabo-OKM-SvW Reductase Allergy Unknown Unknown Verified 07/21/21 12:05 Inhibitor [Txuhodu-Ugn-Eng Reductase Inhibitor] Sulfa (Sulfonamide Allergy Unknown Unknown Verified 07/21/21 12:05 Antibiotics) morphine AdvReac Severe NAUSEA AND Verified 07/21/21 12:05 VOMITING erythromycin base AdvReac Mild Nausea and Verified 07/21/21 12:05 Vomiting Review of Systems Review of Systems: All systems reviewed & are unremarkable except as noted in HPI and below Constitutional: Constitutional: Reports no additional constitutional complaints Eyes: Eyes: Reports no additional eye complaints ENT: Reports system reviewed and no additional complaints, except as documented Cardiovascular: Cardiovascular: Reports no additional cardiovascular complaints Respiratory: Respiratory: Reports no additional respiratory complaints Gastrointestinal: Gastrointestinal: Reports no additional gastrointestinal complaints Musculoskeletal: Musculoskeletal: Reports no additional musculoskeletal complaints Integumentary/Breasts: Skin/Breast: Reports as per HPI Neurologic: Reports system reviewed and no additional complaints, except as documented Psychiatric: Psychiatric: Reports no additional psychiatric complaints Endocrine: Endocrine: Reports no additional endocrine complaints PMFSH Past Medical History Medical History (Updated 08/08/21 @ 01:21 by Dre Law MD) Anemia DDD (degenerative disc disease) Depression Diabetes mellitus GERD (gastroesophageal reflux disease) HLD (hyperlipidemia) HTN (hypertension) Osteoarthritis Seasonal allergies Ulcer Surgical History Surgical History H/O arthroscopy of left knee H/O basal cell carcinoma excision H/O colonoscopy H/O spinal fusion H/O: hysterectomy History of bilateral knee replacement History of bladder surgery History of laminectomy Hx of appendectomy Hx of cholecystectomy Hx of tonsillectomy Family History Family History Mother Family history of diabetes mellitus in first degree relative Family history of lung cancer Father Family history of lung cancer Social History Social History Smoking status: Never smoker Alcohol intake: current Gender identity (if verbalized by the patient): Female Exam Narrative: GENERAL: Well-appearing, well-nourished, and in no acute distress. H
[2021-08-08 01:36] VITALS: BP 152/76; BP 153/69; PULSE 78; PULSE 80; RESP 16; O2SAT 99
== END 2021-08-08 01:38 | disposition home or self-care (01) ==
PROVIDERS: Emergency Provider Family Medicine; PCP Physician Assistant
DX: L50.0 Allergic urticaria (principal); T78.40XA Allergy, unspecified, initial encounter; I10 Essential (primary) hypertension; E11.9 Type 2 diabetes mellitus without complications; E78.5 Hyperlipidemia, unspecified; K21.9 Gastro-esophageal reflux disease without esophagitis; M19.90 Unspecified osteoarthritis, unspecified site; Z86.2 Personal history of diseases of the blood and blood-forming organs and certain disorders involving the immune mechanism; Z79.84 Long term (current) use of oral hypoglycemic drugs; Z85.828 Personal history of other malignant neoplasm of skin; Z98.1 Arthrodesis status; Z96.653 Presence of artificial knee joint, bilateral
CPT/HCPCS: 96372; 99283; J2930

== ENCOUNTER 2021-08-28 15:13 | Emergency (ER) | payer MEDICARE, SELFPAY | END 2021-08-28 15:20 | disposition left against medical advice (07) | PROVIDERS: Emergency Provider Internal Medicine Hematology & Oncology; PCP Physician Assistant | DX: Z53.21 Procedure and treatment not carried out due to patient leaving prior to being seen by health care provider (principal) | CPT/HCPCS: 99199 ==

== ENCOUNTER 2021-08-28 22:00 | Emergency (ER) | payer MEDICARE, SELFPAY ==
[2021-08-28 22:02] VITALS: BP 200/90; PULSE 90; RESP 18; TEMP 36.6; O2SAT 99
[2021-08-29 01:05] VITALS: O2SAT 100
[2021-08-29 01:06] VITALS: BP 216/96; PULSE 74; O2SAT 100
--- NOTE | 2021-08-29 01:45 | ED.SKABFB ---
HPI - Skin/Abscess/Foreign Bdy General Chief complaint: Skin/Abscess/Foreign Body Stated complaint: hives Time Seen by Provider: 08/29/21 01:42 Source: patient Mode of arrival: ambulatory Limitations: no limitations History of Present Illness HPI narrative: Patient is a 71-year-old female who presents the ED with report of itchy rash/papules to BUE and chest. Patient reports a long history of chronic urticaria X 15 yrs. She states she has seen care clinician to [facility] 7 years ago and told she has increased histamine levels. Over the last 3 days, she reports having a rash to her bilateral upper arms and chest, which is very itchy. No pain. She takes several different allergy and antihistamine medications at home and denies any relief with this. She states the itching became worse tonight which prompted her presentation. She does note she used a scented body wash a few days ago, which she does not usually do. Patient also reports lower eyelid swelling, denies any fever, chills, mucosal swelling, difficulty breathing, difficulty swallowing, rhinorrhea, congestion. Related Data Home Medications Medication Instructions Recorded Confirmed metformin 500 mg tablet,extended 1,000 mg PO BID 01/04/19 07/21/21 release 24 hr omeprazole 40 mg capsule,delayed 40 mg PO DAILY 01/04/19 07/21/21 release duloxetine 30 mg capsule,delayed 30 mg PO DAILY 08/17/20 07/21/21 release (Cymbalta) glimepiride 1 mg tablet (Amaryl) 1 mg PO DAILY 08/17/20 07/21/21 Allergies Allergy/AdvReac Type Severity Reaction Status Date / Time RAJEEV Inhibitors Allergy Unknown Unknown Verified 07/21/21 12:05 Ifpxusc-IYN-DmZ Reductase Allergy Unknown Unknown Verified 07/21/21 12:05 Inhibitor [Tbdjmdv-Jps-Qnt Reductase Inhibitor] Sulfa (Sulfonamide Allergy Unknown Unknown Verified 07/21/21 12:05 Antibiotics) morphine AdvReac Severe NAUSEA AND Verified 07/21/21 12:05 VOMITING erythromycin base AdvReac Mild Nausea and Verified 07/21/21 12:05 Vomiting Review of Systems Review of Systems: CONSTITUTIONAL: Denies fever, chills, or sweats. EYES: Reports lower eyelid swelling. Denies visual changes. ENT: Denies dysphagia, swelling of mouth/lips/throat/tongue, rhinorrhea, congestion, sore throat. CARDIOVASCULAR: Denies chest pain, palpitations, or edema. RESPIRATORY: Denies cough or dyspnea. GASTROINTESTINAL: Denies abdominal pain, nausea, vomiting, or diarrhea. SKIN: Reports itchy papular rash to bilateral upper extremities and chest. NEUROLOGIC: Denies headache, numbness, or weakness. All systems reviewed & are unremarkable except as noted in HPI and below PMFSH Past Medical History Medical History (Updated 08/29/21 @ 02:28 by Karina Humphrey PA-C) Anemia DDD (degenerative disc disease) Depression Diabetes mellitus GERD (gastroesophageal reflux disease) HLD (hyperlipidemia) HTN (hypertension) Osteoarthritis Seasonal allergies Ulcer Surgical History Surgical History H/O arthroscopy of left knee H/O basal cell carcinoma excision H/O colonoscopy H/O spinal fusion H/O: hysterectomy History of bilateral knee replacement History of bladder surgery History of laminectomy Hx of appendectomy Hx of cholecystectomy Hx of tonsillectomy Family History Family History Mother Family history of diabetes mellitus in first degree relative Family history of lung cancer Father Family history of lung cancer Social History Social History Smoking status: Never smoker Alcohol intake: current Gender identity (if verbalized by the patient): Female Exam Narrative: GENERAL: Well appearing, well-nourished, non-toxic, in no acute distress. HEAD: Normocephalic, atraumatic. EYES: PERRL/EOMI, conjunctivae clear bilaterally. Mild swelling in lower eyelids, equal melchor
[2021-08-29 02:34] VITALS: BP 160/72; PULSE 82; RESP 18; O2SAT 98
[2021-08-29] MEDS: methylPREDNISolone SOD SUCC 125 MG VIAL IM (02:39)
== END 2021-08-29 02:40 | disposition home or self-care (01) ==
PROVIDERS: Emergency Provider Emergency Medicine; PCP Physician Assistant
DX: R21 Rash and other nonspecific skin eruption (principal); D64.9 Anemia, unspecified; F32.9 Major depressive disorder, single episode, unspecified; E11.9 Type 2 diabetes mellitus without complications; K21.9 Gastro-esophageal reflux disease without esophagitis; E78.5 Hyperlipidemia, unspecified; I10 Essential (primary) hypertension; M19.90 Unspecified osteoarthritis, unspecified site; Z79.84 Long term (current) use of oral hypoglycemic drugs
CPT/HCPCS: 96372; 99283; J2930

== ENCOUNTER 2021-10-04 16:29 | Emergency (ER) | payer MEDICARE, SELFPAY ==
--- NOTE | 2021-10-04 16:37 | ED.URI ---
HPI - URI/Sore Throat General Chief Complaint: Upper Respiratory Infection Stated Complaint: Congestion Time Seen by Provider: 10/04/21 16:53 Source: patient and RN notes reviewed Mode of arrival: ambulatory Limitations: no limitations History of Present Illness HPI Narrative: 71-year-old female presents concern for 4-day history of nasal congestion, cough, chest congestion. She reports a productive cough, she occasionally has shortness of breath after a coughing fit. Reports she recently took steroids for an extended period of time for rash and she had high blood sugar. She denies known sick contacts. Reports she has had 2 negative COVID tests. MD elicited complaint: cough and nasal congestion Related Data Home Medications Medication Instructions Recorded Confirmed metformin 500 mg tablet,extended 1,000 mg PO BID 01/04/19 10/04/21 release 24 hr omeprazole 40 mg capsule,delayed 40 mg PO DAILY 01/04/19 10/04/21 release Allergies Allergy/AdvReac Type Severity Reaction Status Date / Time RAJEEV Inhibitors Allergy Unknown Unknown Verified 10/04/21 16:45 Xyawwqi-VJN-TyG Reductase Allergy Unknown Unknown Verified 10/04/21 16:45 Inhibitor [Xepaupt-Tvs-Qom Reductase Inhibitor] Sulfa (Sulfonamide Allergy Unknown Unknown Verified 10/04/21 16:45 Antibiotics) morphine AdvReac Severe NAUSEA AND Verified 10/04/21 16:45 VOMITING erythromycin base AdvReac Mild Nausea and Verified 10/04/21 16:45 Vomiting Review of Systems Review of Systems: CONSTITUTIONAL: Reports malaise. Denies chills, sweats, or fever. EYES: Denies visual changes, redness, or discharge. ENT: Reports rhinorrhea, congestion. Denies sinus pain, otalgia and sore throat. CARDIOVASCULAR: Denies chest pain, palpitations, or edema. RESPIRATORY: Reports cough, reports occasional dyspnea. GASTROINTESTINAL: Denies abdominal pain, nausea, vomiting, diarrhea SKIN: Denies rash or itching. MUSCULOSKELETAL: Denies myalgia. NEUROLOGIC: Denies headache. All systems reviewed & are unremarkable except as noted in HPI and below PMFSH Past Medical History Medical History (Updated 10/04/21 @ 16:54 by Katalina Bryant NP) Anemia DDD (degenerative disc disease) Depression Diabetes mellitus GERD (gastroesophageal reflux disease) HLD (hyperlipidemia) HTN (hypertension) Osteoarthritis Seasonal allergies Ulcer Surgical History Surgical History H/O arthroscopy of left knee H/O basal cell carcinoma excision H/O colonoscopy H/O spinal fusion H/O: hysterectomy History of bilateral knee replacement History of bladder surgery History of laminectomy Hx of appendectomy Hx of cholecystectomy Hx of tonsillectomy Family History Family History Mother Family history of diabetes mellitus in first degree relative Family history of lung cancer Father Family history of lung cancer Social History Social History Smoking status: Never smoker Alcohol intake: current Gender identity (if verbalized by the patient): Female Comments At time of signature, agree with nursing past medical, surgical, social and family history. There is no relevant family history pertinent to the presenting complaint Exam Narrative: GENERAL: Next nontoxic. And in no acute distress. HEAD: Normocephalic EYES: PERRLA, conjunctivae clear ENT: Nares clear, turbinates edematous and erythematous, clear discharge. Mucous membranes moist. TM pearly garcia with dull light reflex bilaterally; no tragal tenderness. Oropharynx not erythematous without lesions. Tonsils not enlarged and without exudate, no drooling, no hoarseness, no trismus, uvula midline. NECK: Supple. No lymphadenopathy CHEST: Clear to auscultation, breath sounds equal. No wheezing, rhonchi, rales, or stridor. No respiratory distress, speaks in full sentenc
[2021-10-04 16:38] VITALS: BP 151/79; PULSE 96; RESP 16; TEMP 35.9; O2SAT 98
== END 2021-10-04 16:58 | disposition home or self-care (01) ==
PROVIDERS: Emergency Provider Nurse Practitioner; PCP Physician Assistant
DX: J06.9 Acute upper respiratory infection, unspecified (principal); R05.9 Cough, unspecified; E11.9 Type 2 diabetes mellitus without complications; K21.9 Gastro-esophageal reflux disease without esophagitis; E78.5 Hyperlipidemia, unspecified; I10 Essential (primary) hypertension; M19.90 Unspecified osteoarthritis, unspecified site; Z85.828 Personal history of other malignant neoplasm of skin; Z96.653 Presence of artificial knee joint, bilateral; Z79.84 Long term (current) use of oral hypoglycemic drugs
CPT/HCPCS: 99213; G0463

== ENCOUNTER 2021-12-04 18:26 | Emergency (ER) | payer MEDICARE, SELFPAY ==
[2021-12-04 18:53] VITALS: BP 170/88; PULSE 92; RESP 16; TEMP 36.6; O2SAT 99
--- NOTE | 2021-12-04 19:14 | ED.SKABFB ---
HPI - Skin/Abscess/Foreign Bdy General Chief complaint: Skin/Abscess/Foreign Body Stated complaint: Itching All Over Body Time Seen by Provider: 12/04/21 19:14 Source: patient Mode of arrival: ambulatory Limitations: no limitations History of Present Illness HPI narrative: 71-year-old female presenting for complaint of itching all over her body for 5 days.? She endorses having extra histamines and has been seen in the past by an roofing tile sorter.?Cannot take antihistamines, it makes itching worse. She currently denies any rash or lesions to her skin, but states the scratching causes sores. No lip swelling, tongue swelling, or difficulty breathing reported. hx drug allergies. States she takes Atarax sometimes and the steroid shot helps. denies change to soap, detergent, lotion, meds etc. Related Data Home Medications Medication Instructions Recorded Confirmed metformin 500 mg tablet,extended 1,000 mg PO BID 01/04/19 12/04/21 release 24 hr omeprazole 40 mg capsule,delayed 40 mg PO DAILY 01/04/19 12/04/21 release Allergies Allergy/AdvReac Type Severity Reaction Status Date / Time RAJEEV Inhibitors Allergy Unknown Unknown Verified 12/04/21 18:35 Yabejru-ASO-RtA Reductase Allergy Unknown Unknown Verified 12/04/21 18:35 Inhibitor [Kapdxxh-Nvg-Ihg Reductase Inhibitor] Sulfa (Sulfonamide Allergy Unknown Unknown Verified 12/04/21 18:35 Antibiotics) morphine AdvReac Severe NAUSEA AND Verified 12/04/21 18:35 VOMITING erythromycin base AdvReac Mild Nausea and Verified 12/04/21 18:35 Vomiting Review of Systems Review of Systems: CONSTITUTIONAL: Denies body aches, fever, chills, or sweats. EYES: Denies visual changes, redness, or discharge. ENT: Denies rhinorrhea, congestion CARDIOVASCULAR: Denies chest pain, palpitations, or edema. RESPIRATORY: Denies cough or dyspnea. GASTROINTESTINAL: Denies abdominal pain, nausea, vomiting, or diarrhea. SKIN: denies rash, endorses itching MUSCULOSKELETAL: Denies back pain, joint pain, or myalgia. NEUROLOGIC: Denies headache, numbness, tingling, or weakness. PMFSH Past Medical History Medical History Anemia DDD (degenerative disc disease) Depression Diabetes mellitus GERD (gastroesophageal reflux disease) HLD (hyperlipidemia) HTN (hypertension) Osteoarthritis Seasonal allergies Ulcer Surgical History Surgical History H/O arthroscopy of left knee H/O basal cell carcinoma excision H/O colonoscopy H/O spinal fusion H/O: hysterectomy History of bilateral knee replacement History of bladder surgery History of laminectomy Hx of appendectomy Hx of cholecystectomy Hx of tonsillectomy Family History Family History Mother Family history of diabetes mellitus in first degree relative Family history of lung cancer Father Family history of lung cancer Social History Social History Smoking status: Never smoker Alcohol intake: current Gender identity (if verbalized by the patient): Female Comments At time of signature, I have reviewed and agree with nursing past medical, surgical, social and family history unless otherwise noted. Please see nursing chart for further information. There is no relevant family history pertinent to the presenting complaint Exam Narrative: GENERAL: Well-appearing HEAD: Normocephalic, atraumatic. EYES: conjunctivae clear, and EOMI. ENT: Mucous membranes moist. NECK: Supple. No lymphadenopathy CHEST: Clear to auscultation. HEART: Regular rate and rhythm. SKIN: Warm, dry. No apparent rash or lesions to body surface NEURO: Alert and oriented x3. Course Course Emergency Course: Patient is aware of diagnosis, understands and agrees to treatment plan. Anticipatory guidance given.
[2021-12-04] MEDS: methylPREDNISolone ACETATE 80 MG/ML VIAL IM (19:34)
== END 2021-12-04 19:50 | disposition home or self-care (01) ==
PROVIDERS: Emergency Provider Nurse Practitioner Family; PCP Physician Assistant
DX: L29.9 Pruritus, unspecified (principal); E11.9 Type 2 diabetes mellitus without complications; K21.9 Gastro-esophageal reflux disease without esophagitis; E78.5 Hyperlipidemia, unspecified; I10 Essential (primary) hypertension; M19.90 Unspecified osteoarthritis, unspecified site; Z96.653 Presence of artificial knee joint, bilateral; Z85.828 Personal history of other malignant neoplasm of skin
CPT/HCPCS: 96372; 99213; G0463; J1040

== ENCOUNTER 2022-02-03 10:48 | Outpatient (CLI) | payer MEDICARE, SELFPAY ==
--- NOTE | ~2022-02-03 | US_ITS ---
EXAMINATION: US venous doppler LE RT DATE: 02/03/2022 11:45 INDICATION: Right lower limb localized swelling. TECHNIQUE: Grayscale ultrasound images without and with compression and Doppler ultrasound images of the right lower extremity veins were obtained. COMPARISON: Ultrasound 12/06/2012 FINDINGS: The visualized portions of right common femoral vein, profunda (deep) femoral vein, femoral vein, pop liteal vein, posterior tibial veins, and greater saphenous vein outflow are patent. IMPRESSION: 1. No deep venous thrombosis. Reviewed, dictated and finalized at location A. [employer] DIRECT[employer]
== END 2022-02-03 10:49 | disposition home or self-care (01) ==
PROVIDERS: PCP Physician Assistant; Visit Provider Physician Assistant
DX: R22.41 Localized swelling, mass and lump, right lower limb (principal)
CPT/HCPCS: 93971

== ENCOUNTER 2022-06-06 16:35 | Emergency (ER) | payer SELFPAY ==
[2022-06-06 16:38] VITALS: BP 152/96; PULSE 88; RESP 18; TEMP 36.8; O2SAT 99
--- NOTE | 2022-06-06 17:14 | ED.SKABFB ---
HPI - Skin/Abscess/Foreign Bdy General Chief complaint: Skin/Abscess/Foreign Body Stated complaint: itchy Time Seen by Provider: 06/06/22 17:08 Source: patient Mode of arrival: ambulatory Limitations: no limitations History of Present Illness HPI narrative: This patient presents today complaining of generalized skin itching. 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 States occasionally her symptoms flare up and she develops hives which require steroids. Symptoms have been worse over the past 5 days. She typically takes Benadryl and other antihistamines at home for her symptoms daily. She has been scratching profusely as well. Reports rash is most concentrated on her hands, legs, and in her groin. History of diabetes. States that when she needs to be treated with steroids her blood sugars typically go up to approximately 300, but go back down when she takes her medications. Related Data Home Medications Medication Instructions Recorded Confirmed metformin 500 mg tablet,extended 1,000 mg PO BID 01/04/19 06/06/22 release 24 hr omeprazole 40 mg capsule,delayed 40 mg PO DAILY 01/04/19 06/06/22 release Allergies Allergy/AdvReac Type Severity Reaction Status Date / Time RAJEEV Inhibitors Allergy Unknown Unknown Verified 06/06/22 16:44 Agjjrvq-FFQ-ZsN Reductase Allergy Unknown Unknown Verified 06/06/22 16:44 Inhibitor [Ssdmgtw-Rtn-Ffg Reductase Inhibitor] Sulfa (Sulfonamide Allergy Unknown Unknown Verified 06/06/22 16:44 Antibiotics) morphine AdvReac Severe NAUSEA AND Verified 06/06/22 16:44 VOMITING erythromycin base AdvReac Mild Nausea and Verified 06/06/22 16:44 Vomiting Review of Systems Review of Systems: CONSTITUTIONAL: Denies body aches, fever, chills, or sweats. EYES: Denies visual changes, redness, or discharge. ENT: Denies rhinorrhea, congestion, sore throat, or otalgia. CARDIOVASCULAR: Denies chest pain, palpitations, or edema. RESPIRATORY: Denies cough or dyspnea. GASTROINTESTINAL: Denies abdominal pain, nausea, vomiting, or diarrhea. GENITOURINARY: Denies dysuria or hematuria. SKIN: + pruritic rash MUSCULOSKELETAL: Denies back pain, joint pain, or myalgia. NEUROLOGIC: Denies headache, numbness, tingling, or weakness. PSYCH: Denies depression or anxiety. PENDING SALE TO [facility] Past Medical History Medical History (Updated 06/06/22 @ 17:20 by Vanessa Barcenas, GRAHAM, ) Anemia DDD (degenerative disc disease) Depression Diabetes mellitus GERD (gastroesophageal reflux disease) HLD (hyperlipidemia) HTN (hypertension) Osteoarthritis Seasonal allergies Ulcer Surgical History Surgical History H/O arthroscopy of left knee H/O basal cell carcinoma excision H/O colonoscopy H/O spinal fusion H/O: hysterectomy History of bilateral knee replacement History of bladder surgery History of laminectomy Hx of appendectomy Hx of cholecystectomy Hx of tonsillectomy Family History Family History Mother Family history of diabetes mellitus in first degree relative Family history of lung cancer Father Family history of lung cancer Social History Social History Smoking status: Never smoker Alcohol intake: current Gender identity (if verbalized by the patient): Female Comments At time of signature, I have reviewed and agree with nursing past medical, surgical, social and family history unless otherwise noted. Please see nursing chart for further information. There is no relevant family history pertinent to the presenting complaint Exam Narrative: GENERAL: Well-appearing, well-nourished, and in no acute distress. HEAD: Normocephalic, atraumatic. EYES: EOMI. No redness or drainage. Conjunctivae normal. ENT: Mucous membranes pink and moist. NECK: Normal AROM.
[2022-06-06] MEDS: methylPREDNISolone SOD SUCC 125 MG VIAL IM (17:21)
== END 2022-06-06 17:35 | disposition home or self-care (01) ==
PROVIDERS: Emergency Provider Nurse Practitioner
DX: L50.8 Other urticaria (principal); E11.9 Type 2 diabetes mellitus without complications; K21.9 Gastro-esophageal reflux disease without esophagitis; E78.5 Hyperlipidemia, unspecified; I10 Essential (primary) hypertension; M19.90 Unspecified osteoarthritis, unspecified site; Z96.653 Presence of artificial knee joint, bilateral; Z79.84 Long term (current) use of oral hypoglycemic drugs
CPT/HCPCS: 96372; 99213; G0463; J2930

== ENCOUNTER 2022-06-22 17:31 | Emergency (ER) | payer MEDICARE, SELFPAY ==
--- NOTE | 2022-06-22 17:39 | ED.GENADULT ---
HPI - General Adult General Chief complaint: Skin/Abscess/Foreign Body Stated complaint: Skin Irritation Time Seen by Provider: 06/22/22 17:39 Source: patient, RN notes reviewed and old records reviewed Mode of arrival: ambulatory Limitations: no limitations History of Present Illness HPI narrative: 72-year-old female presents to the [facility] with itching, hives, redness, swelling and increased warmth to the right lateral lower leg. 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 States that has been going on for about 15 years. Has seen multiple specialists with no answer except that she has too many histamines in her body. Patient was seen on June 06, 16 days ago, given a shot of Solu-Medrol. Patient requesting another shot of Solu-Medrol. Explained to patient that it is dangerous for her health, immune system, bones, kidneys for frequent use of steroids Patient states she has had hives all over her body for an unknown cause. Denies any new creams, or ointments, lotions or detergents. Denies any new foods or medications. Patient's biggest concern was the red warm swollen area to the lateral right lower leg that was not circumferential. Related Data Home Medications Medication Instructions Recorded Confirmed metformin 500 mg tablet,extended 1,000 mg PO BID 01/04/19 06/22/22 release 24 hr omeprazole 40 mg capsule,delayed 40 mg PO DAILY 01/04/19 06/22/22 release Allergies Allergy/AdvReac Type Severity Reaction Status Date / Time RAJEEV Inhibitors Allergy Unknown Unknown Verified 06/22/22 17:37 Fvliayw-NKL-SpJ Reductase Allergy Unknown Unknown Verified 06/22/22 17:37 Inhibitor [Eslecuz-Sxt-Uwb Reductase Inhibitor] Sulfa (Sulfonamide Allergy Unknown Unknown Verified 06/22/22 17:37 Antibiotics) morphine AdvReac Severe NAUSEA AND Verified 06/22/22 17:37 VOMITING erythromycin base AdvReac Mild Nausea and Verified 06/22/22 17:37 Vomiting Review of Systems Review of Systems: All systems reviewed & are unremarkable except as noted in HPI and below Constitutional: Constitutional: Reports no additional constitutional complaints Eyes: Eyes: Reports no additional eye complaints ENT: Reports system reviewed and no additional complaints, except as documented Cardiovascular: Cardiovascular: Reports no additional cardiovascular complaints, Denies chest pain and Denies dyspnea Respiratory: Respiratory: Reports no additional respiratory complaints, Denies chest congestion, Denies cough and Denies dyspnea Gastrointestinal: Gastrointestinal: Reports no additional gastrointestinal complaints, Denies abdominal pain, Denies nausea and Denies vomiting Musculoskeletal: Musculoskeletal: Reports no additional musculoskeletal complaints Integumentary/Breasts: Skin/Breast: Reports as per HPI Neurologic: Reports system reviewed and no additional complaints, except as documented Psychiatric: Psychiatric: Reports no additional psychiatric complaints Allergic/Immunologic: Allergic/Immunologic: Reports no additional allergic/immunologic complaints PMFSH Past Medical History Medical History Anemia DDD (degenerative disc disease) Depression Diabetes mellitus GERD (gastroesophageal reflux disease) HLD (hyperlipidemia) HTN (hypertension) Osteoarthritis Seasonal allergies Ulcer Surgical History Surgical History H/O arthroscopy of left knee H/O basal cell carcinoma excision H/O colonoscopy H/O spinal fusion H/O: hysterectomy History of bilateral knee replacement History of bladder surgery History of laminectomy Hx of appendectomy Hx of cholecystectomy Hx of tonsillectomy Family History Family History Mother Family history of diabetes mellitus in first degree relative Family history of lung cancer Father Family history of lung cancer
[2022-06-22 17:53] VITALS: BP 150/72; PULSE 96; RESP 18; TEMP 36.3; O2SAT 99
[2022-06-22 17:54] LABS: Glucose Point of Care 152 mg/dl (65-105)
== END 2022-06-22 18:00 | disposition home or self-care (01) ==
PROVIDERS: Emergency Provider Nurse Practitioner; PCP Physician Assistant
DX: L50.8 Other urticaria (principal); L03.115 Cellulitis of right lower limb; E11.9 Type 2 diabetes mellitus without complications; Z79.84 Long term (current) use of oral hypoglycemic drugs; K21.9 Gastro-esophageal reflux disease without esophagitis; E78.5 Hyperlipidemia, unspecified; I10 Essential (primary) hypertension; M19.90 Unspecified osteoarthritis, unspecified site; Z85.828 Personal history of other malignant neoplasm of skin; Z96.653 Presence of artificial knee joint, bilateral
CPT/HCPCS: 82948; 99213; G0463

== ENCOUNTER 2023-08-24 08:06 | Emergency (ER) | payer MEDICARE, SELFPAY ==
--- NOTE | 2023-08-24 08:21 | ED.SKABFB ---
HPI - Skin/Abscess/Foreign Bdy General Chief complaint: Skin/Abscess/Foreign Body Stated complaint: Hives Time Seen by Provider: 08/24/23 08:21 Source: patient Mode of arrival: ambulatory Limitations: no limitations History of Present Illness HPI narrative: 73 y/o female with hx DM presented for c/o red itchy burning rash under both breasts and groin folds for about 4 weeks. Has applied many otc creams without relief, including neosporin, baby rash cream, hydrocortisone, and calamine. Denies lip, tongue, or throat swelling, shortness of breath or wheezing. Denies changes to soap, detergent, lotion, or any other exposures. No one else in the house or any contacts with similar symptoms. Reports BS well controlled 125. Related Data Home Medications Medication Instructions Recorded Confirmed metformin 500 mg tablet,extended 1,000 mg PO BID 01/04/19 08/24/23 release 24 hr naproxen sodium 220 mg capsule 220 mg PO BID PRN Pain 10/22/22 08/24/23 Allergies Allergy/AdvReac Type Severity Reaction Status Date / Time RAJEEV Inhibitors Allergy Unknown Unknown Verified 08/24/23 08:11 Yyoljym-LYX-TzM Reductase Allergy Unknown Unknown Verified 08/24/23 08:11 Inhibitor [Duqmxsd-Uwr-Xkx Reductase Inhibitor] Sulfa (Sulfonamide Allergy Unknown Unknown Verified 08/24/23 08:11 Antibiotics) morphine AdvReac Severe NAUSEA AND Verified 08/24/23 08:11 VOMITING erythromycin base AdvReac Mild Nausea and Verified 08/24/23 08:11 Vomiting Review of Systems Review of Systems: CONSTITUTIONAL: Denies body aches, fever, chills, or sweats. EYES: Denies visual changes, redness, or discharge. ENT: Denies rhinorrhea, congestion CARDIOVASCULAR: Denies chest pain, palpitations, or edema. RESPIRATORY: Denies cough or dyspnea. GASTROINTESTINAL: Denies abdominal pain, nausea, vomiting, or diarrhea. SKIN: per HPI MUSCULOSKELETAL: Denies back pain, joint pain, or myalgia. NEUROLOGIC: Denies headache, numbness, tingling, or weakness. [facility] Past Medical History Medical History Anemia DDD (degenerative disc disease) Depression Diabetes mellitus GERD (gastroesophageal reflux disease) HLD (hyperlipidemia) HTN (hypertension) Osteoarthritis Seasonal allergies Tendinitis of left rotator cuff Ulcer Surgical History Surgical History H/O arthroscopy of left knee H/O basal cell carcinoma excision H/O colonoscopy H/O spinal fusion H/O: hysterectomy History of bilateral knee replacement History of bladder surgery History of laminectomy Hx of appendectomy Hx of cholecystectomy Hx of tonsillectomy Family History Family History Mother Family history of diabetes mellitus in first degree relative Heart attack Father Family history of lung cancer Social History Social History Smoking status: Never smoker Alcohol intake: current Substance use: never Lack of Transportation: No Lack of Food: Never True Current Housing: I Have Housing Concerned About Future Housing: No Difficulty Paying Gas/Electric Bills: No Difficulty Paying for Meds: No Currently Unemployed: No Education: Associate Degree Difficulty w/ Childcare or Family Care: No Living arrangements: alone Occupation/Education: retired Gender identity (if verbalized by the patient): Female Comments At time of signature, I have reviewed and agree with nursing past medical, surgical, social and family history unless otherwise noted. Please see nursing chart for further information. There is no relevant family history pertinent to the presenting complaint Exam Narrative: GENERAL: Well-appearing ENT: Mucous membranes moist. Oropharynx without edema, erythema or lesions. NECK: Supple. No lymphadenopathy CHEST: Rosa
[2023-08-24 08:24] VITALS: BP 178/86; PULSE 89; RESP 18; TEMP 36.6; O2SAT 99
== END 2023-08-24 08:40 | disposition home or self-care (01) ==
PROVIDERS: Emergency Provider Nurse Practitioner Family; PCP Emergency Medicine
DX: B37.2 Candidiasis of skin and nail (principal); E11.9 Type 2 diabetes mellitus without complications; Z79.84 Long term (current) use of oral hypoglycemic drugs; K21.9 Gastro-esophageal reflux disease without esophagitis; E78.5 Hyperlipidemia, unspecified; I10 Essential (primary) hypertension; M19.90 Unspecified osteoarthritis, unspecified site; Z85.828 Personal history of other malignant neoplasm of skin; Z96.653 Presence of artificial knee joint, bilateral
CPT/HCPCS: 99213; G0463

== ENCOUNTER 2023-08-30 17:37 | Emergency (ER) | payer MEDICARE, SELFPAY ==
[2023-08-30 17:44] VITALS: BP 154/91; PULSE 91; RESP 14; TEMP 36.7; O2SAT 98
--- NOTE | 2023-08-30 17:57 | ED.EAR ---
HPI - Ear Problem General Chief complaint: Ear Stated complaint: facial swelling,ear inf Time Seen by Provider: 08/30/23 17:45 Source: patient Mode of arrival: ambulatory Limitations: no limitations History of Present Illness HPI Narrative: Leni as a 73-year-old female patient presenting to the clinic today with complaints left ear discomfort and possible facial swelling that started yesterday. She denies any recent swimming. She denies any fevers, chills, or body aches. Reporting decreased hearing in the left ear. Related Data Home Medications Medication Instructions Recorded Confirmed metformin 500 mg tablet,extended 1,000 mg PO BID 01/04/19 08/24/23 release 24 hr naproxen sodium 220 mg capsule 220 mg PO BID PRN Pain 10/22/22 08/24/23 Allergies Allergy/AdvReac Type Severity Reaction Status Date / Time RAJEEV Inhibitors Allergy Unknown Unknown Verified 08/30/23 17:39 Tdlfpmb-XDU-KlQ Reductase Allergy Unknown Unknown Verified 08/30/23 17:39 Inhibitor [Zzxzavr-Sxf-Scg Reductase Inhibitor] Sulfa (Sulfonamide Allergy Unknown Unknown Verified 08/30/23 17:39 Antibiotics) morphine AdvReac Severe NAUSEA AND Verified 08/30/23 17:39 VOMITING erythromycin base AdvReac Mild Nausea and Verified 08/30/23 17:39 Vomiting Review of Systems Review of Systems: Pertinent positives per HPI. Patient denies any fever, chills, rash, headache, visual changes, dizziness, cough, runny nose, sore throat, shortness of breath, chest pain, palpitations, nausea, vomiting, diarrhea, constipation, abdominal pain, or any urinary issues. PMFSH Past Medical History Medical History Anemia DDD (degenerative disc disease) Depression Diabetes mellitus GERD (gastroesophageal reflux disease) HLD (hyperlipidemia) HTN (hypertension) Osteoarthritis Seasonal allergies Tendinitis of left rotator cuff Ulcer Surgical History Surgical History H/O arthroscopy of left knee H/O basal cell carcinoma excision H/O colonoscopy H/O spinal fusion H/O: hysterectomy History of bilateral knee replacement History of bladder surgery History of laminectomy Hx of appendectomy Hx of cholecystectomy Hx of tonsillectomy Family History Family History Mother Family history of diabetes mellitus in first degree relative Heart attack Father Family history of lung cancer Social History Social History Smoking status: Never smoker Alcohol intake: current Substance use: never Lack of Transportation: No Lack of Food: Never True Current Housing: I Have Housing Concerned About Future Housing: No Difficulty Paying Gas/Electric Bills: No Difficulty Paying for Meds: No Currently Unemployed: No Education: Associate Degree Difficulty w/ Childcare or Family Care: No Living arrangements: alone Occupation/Education: retired Gender identity (if verbalized by the patient): Female Comments At the time of my signature, I reviewed and agree with the nursing past medical, surgical, social, and family history. There is no relevant family history pertinent to the patient complaint. Exam Narrative: General: Well-developed, well nourished, in no apparent distress Head: Normocephalic, atraumatic Eyes: Pupils equally round and reactive to light bilaterally, EOM intact, sclera and conjunctive clear, no discharge, lids normal Ears: TMs intact and clear, ear canals clear, no drainage, grossly hearing normal. Cerumen impaction to the left ear canal- removed via ear irrigation and current, left tm bulging with fluid noted behind the tm Nose: Nares patent, no discharge, no inflammation, no sinus tenderness. Mouth: Oropharynx without lesions or masses, good dentition, MMM. Neck: Supple, trachea midline,
== END 2023-08-30 18:05 | disposition home or self-care (01) ==
PROVIDERS: Emergency Provider Nurse Practitioner Family; PCP Emergency Medicine
DX: H65.02 Acute serous otitis media, left ear (principal); H61.22 Impacted cerumen, left ear; H69.92 Unspecified Eustachian tube disorder, left ear; E11.9 Type 2 diabetes mellitus without complications; Z79.84 Long term (current) use of oral hypoglycemic drugs; K21.9 Gastro-esophageal reflux disease without esophagitis; E78.5 Hyperlipidemia, unspecified; I10 Essential (primary) hypertension; M19.90 Unspecified osteoarthritis, unspecified site; Z85.828 Personal history of other malignant neoplasm of skin; Z96.653 Presence of artificial knee joint, bilateral
CPT/HCPCS: 69210; 99212; G0463

== ENCOUNTER 2024-07-13 15:31 | Emergency (ER) | payer MEDICARE, SELFPAY ==
[2024-07-13 15:43] VITALS: BP 153/84; PULSE 90; RESP 18; TEMP 36.6; O2SAT 99
--- NOTE | 2024-07-13 16:27 | ED.FALL ---
HPI - Fall General Chief Complaint: Fall Stated Complaint: fall Time Seen by Provider: 07/13/24 16:15 Source: patient and RN notes reviewed Mode of arrival: ambulatory Limitations: no limitations History of Present Illness HPI Narrative: 74-year-old female presents [facility] complaining of tailbone pain. Patient reported she slipped down 1 step when caring laundry and slid down the step and scraped her tailbone. Patient denies any pain to the tailbone or pelvis or hips. She reports she has an abrasion to her tailbone reports it is painful and chaves. Patient is able to ambulate with no pain in her hips or pelvis. Patient says hurts to wipe above her tailbone due to the pain of the wound. Patient denies hitting her head any loss of consciousness, or any neck or back pain. Patient has been using Neosporin and other topical therapies to help without relief. Patient does have a history of diabetes. Patient's tetanus is up today. Related Data Allergies Allergy/AdvReac Type Severity Reaction Status Date / Time RAJEEV Inhibitors Allergy Unknown Unknown Verified 07/13/24 15:46 Nzdlkkt-WXJ-FyI Reductase Allergy Unknown Unknown Verified 07/13/24 15:46 Inhibitor (Yhlnfpu-Aak-Ecx Reductase Inhibitor) Sulfa (Sulfonamide Allergy Unknown Unknown Verified 07/13/24 15:46 Antibiotics) morphine AdvReac Severe NAUSEA AND Verified 07/13/24 15:46 VOMITING erythromycin base AdvReac Mild Nausea and Verified 07/13/24 15:46 Vomiting Review of Systems Review of Systems: CONSTITUTIONAL: Denies fever, chills, or sweats. EYES: Denies visual changes, redness, or discharge. ENT: Denies rhinorrhea, congestion, sore throat, or otalgia. CARDIOVASCULAR: Denies chest pain, palpitations, or edema. RESPIRATORY: Denies cough or dyspnea. GASTROINTESTINAL: Denies abdominal pain, nausea, vomiting, or diarrhea. GENITOURINARY: Denies dysuria or hematuria. SKIN: Denies rash or itching. Positive for wound. MUSCULOSKELETAL: Denies back pain, joint pain, or myalgia. NEUROLOGIC: Denies headache, numbness, or weakness. PSYCHIATRIC: Denies anxiety or depression. All other systems reviewed are negative, except as documented in HPI. [facility] Past Medical History Medical History Tendinitis of left rotator cuff Anemia Depression Diabetes mellitus DDD (degenerative disc disease) Osteoarthritis GERD (gastroesophageal reflux disease) Ulcer HLD (hyperlipidemia) HTN (hypertension) Seasonal allergies Surgical History Surgical History H/O basal cell carcinoma excision History of bilateral knee replacement H/O spinal fusion History of laminectomy H/O arthroscopy of left knee History of bladder surgery H/O: hysterectomy Hx of cholecystectomy Hx of appendectomy H/O colonoscopy Hx of tonsillectomy Family History Family History Mother Family history of diabetes mellitus in first degree relative Heart attack Father Family history of lung cancer Social History Social History Smoking status: Never smoker Alcohol intake: current Substance use: never Lack of Transportation: No Lack of Food: Never True Current Housing: I Have Housing Concerned About Future Housing: No Difficulty Paying Gas/Electric Bills: No Difficulty Paying for Meds: No Currently Unemployed: No Education: Associate Degree Difficulty w/ Childcare or Family Care: No Living arrangements: alone Occupation/Education: retired Gender identity (if verbalized by the patient): Female Comments At the time of my signature, I reviewed and agree with the nursing past medical, surgical, social, and family history. There is no relevant family history pertinent to the patient complaint. Exam Narrative: GENERAL: This is a well-nourished, well-developed adult, in no apparent distress. They are non ill-appearing, nontoxic appearing. HEAD: normocephalic, atraumatic. EYES: Sclera clear/white. Conjunctiva normal. Vision is grossly intact. Extraocular movements intact. Pupils PERRLA EARS: External ears normal Hearing grossly intact. NOSE: External nose normal THROAT: Mucous membranes moist, NECK: Neck supple CARDIOVASCULAR: Regular rate and rhythm RESPIRATORY: Respiratory rate normal, respiratory effort nonlabored, no respiratory distress SKIN: Buttocks: Small Abrasion present to the apex the coccyx. No exudate, area of fluctuance, induration, or surrounding cellulitis. No bony tenderness. No crepitus. No obvious deformity, swelling, bleeding, or bruising. NEURO: awake, alert, and oriented to person, place and time. There were no obvious focal neurologic abnormalities. EXTREMITIES: No joint tenderness, effusion, or edema noted. No pelvic instability. No bony tenderness BACK: Nontender without deformity. No CVA tenderness. No cervical, thoracic, lumbar point tenderness. No step-offs, no crepitus. Course Course Emergency Course: Portions of this record may have been created with voice recognition software Level of Care: Express Care Visit Vital Signs Vital signs: Vital Signs Temperature 98 F 07/13/24 15:43 Pulse Rate 90 07/13/24 15:43 Respiratory Rate 18 07/13/24 15:43 Blood Pressure 153/84 H 07/13/24 15:43 Pulse Oximetry 99 07/13/24 15:43 Oxygen Delivery Room Air 07/13/24 15:43 Temperature 98 F 07/13/24 15:43 Pulse Rate 90 07/13/24 15:43 Respiratory Rate 18 07/13/24 15:43 Blood Pressure 153/84 H 07/13/24 15:43 Pulse Oximetry 99 07/13/24 15:43 Oxygen Delivery Room Air 07/13/24 15:43 Reviewed MDM - Fall MDM Narrative Medical decision making narrative: Likely patient has small abrasion to the tailbone. Does not appear infected. Give patient prescription mupirocin cream to help prevent infection given the location. No evidence abscess formation. Low suspicion for any tail bone fracture. Offered patient transfer to another [facility] to obtain imaging she declined since she is not worried about a fracture. Patient does have a follow-up coming up next week with her primary care provider will talk to them about if pain persists. Discussed physical exam findings. Advised supportive measures and signs/symptoms to go to the ER. Pt is appropriate for outpt treatment and f/u. Differential Diagnosis Differential diagnosis: Likely other (Abrasion, abscess, tailbone fracture) Critical Care Time Critical Care Time Critical Care Time: No Discharge Plan Discharge Clinical Impression: Abrasion Fall Qualifiers: Encounter type: initial encounter Qualified Code(s): W19.XXXA - Unspecified fall, initial encounter Patient Disposition: Home Condition: Stable Instructions: Antibiotic Form, Abrasion (ED) Additional Instructions: Use of mupirocin cream as directed. Applied directly to the affected area. May also use goldBond or other anti moisture powders help keep the area dry. Please follow-up with primary care provider in 3-5 days. If your symptoms worsen, he developed redness, swelling, discharge, fevers, worsening pain, or any other concerns please go to the ER immediately. Patient Language: Sammarinese Prescriptions: New mupirocin calcium 2 % cream 1 applic topical TID 7 Days Qty: 15 0RF No Action azelastine 137 mcg (0.1 %) aerosol,spray 2 spray intranasal Q12H Qty: 30 3RF Rx Instructions: administer into each nostril losartan 100 mg tablet 100 mg PO DAILY Qty: 90 1RF metformin 500 mg tablet extended release 24 hr 1,000 mg PO BID Qty: 360 3RF hydrochlorothiazide 25 mg tablet 25 mg PO DAILY Qty: 90 3RF lorazepam 0.5 mg tablet 0.5 mg PO TID PRN (Reason: Anxiety) Qty: 90 5RF Mounjaro 5 mg/0.5 mL pen injector 5 mg subcut WEEKLY Qty: 6 0RF omeprazole 40 mg capsule,delayed release(DR/EC) 40 mg PO DAILY Qty: 90 0RF Follow-up/Referrals: Josh Fonseca DO [Primary Care Provider] - Time of Disposition: 16:16
== END 2024-07-13 16:25 | disposition home or self-care (01) ==
PROVIDERS: PCP Internal Medicine
DX: S30.810A Abrasion of lower back and pelvis, initial encounter (principal); W10.9XXA Fall (on) (from) unspecified stairs and steps, initial encounter; E11.9 Type 2 diabetes mellitus without complications; Z79.84 Long term (current) use of oral hypoglycemic drugs; Z79.85 Long-term (current) use of injectable non-insulin antidiabetic drugs; I10 Essential (primary) hypertension; E78.5 Hyperlipidemia, unspecified; K21.9 Gastro-esophageal reflux disease without esophagitis; M19.90 Unspecified osteoarthritis, unspecified site; Z96.653 Presence of artificial knee joint, bilateral
CPT/HCPCS: 99213; G0463

== ENCOUNTER 2025-01-20 17:29 | Emergency (ER) | payer MEDICARE, SELFPAY ==
[2025-01-20 17:49] VITALS: BP 164/73; PULSE 81; RESP 16; TEMP 36.3; O2SAT 100
--- NOTE | 2025-01-20 18:26 | ED.EAR ---
HPI - Ear Problem General Chief complaint: Ear Stated complaint: Ear aches in both ears Time Seen by Provider: 01/20/25 18:27 Source: patient, RN notes reviewed and old records reviewed Mode of arrival: ambulatory Limitations: no limitations History of Present Illness HPI Narrative: 74 year old female who presents to [facility] care with complaints of bilateral ear pain and pressure which started on Thursday. Patient reports that she has not had any fever or any symptoms of sinus congestion or URI symptoms. Patient reports that she has not taken any OTC medication for her symptoms. MD Complaint: ear pain Location: bilateral Duration: intermittent Severity: moderate Discharge from ear: Reports no Treatment prior to arrival: none Related Data Allergies Allergy/AdvReac Type Severity Reaction Status Date / Time RAJEEV Inhibitors Allergy Unknown Unknown Verified 01/20/25 17:58 Sulfa (Sulfonamide Allergy Unknown Unknown Verified 01/20/25 17:58 Antibiotics) morphine AdvReac Severe NAUSEA AND Verified 01/20/25 17:58 VOMITING erythromycin base AdvReac Mild Nausea and Verified 01/20/25 17:58 Vomiting Qswckab-IBC-NqM Reductase AdvReac Unknown Muscle Pain Verified 01/20/25 17:58 Inhibitor (Syhqfnq-Vkm-Nds Reductase Inhibitor) Review of Systems Review of Systems: CONSTITUTIONAL: Denies malaise, chills, sweats, or fever. EYES: Denies visual changes, redness, or discharge. ENT: Reports no rhinorrhea, congestion, sinus pain,+ otalgia and no sore throat. CARDIOVASCULAR: Denies chest pain, palpitations, or edema. RESPIRATORY: Reports no cough.? Denies dyspnea. GASTROINTESTINAL: Denies abdominal pain, nausea, vomiting, diarrhea SKIN: Denies rash or itching. MUSCULOSKELETAL: Denies myalgia. NEUROLOGIC: Denies headache. All systems reviewed & are unremarkable except as noted in HPI and below PMFSH Past Medical History Medical History Swelling of lower extremity Supraclavicular fossa fullness Allergic rhinitis Sensation of fullness in right ear PND (post-nasal drip) Impacted cerumen of both ears Impacted cerumen, right ear Excessive cerumen in both ear canals Tendinitis of left rotator cuff Anemia Depression Diabetes mellitus DDD (degenerative disc disease) Osteoarthritis GERD (gastroesophageal reflux disease) Ulcer HLD (hyperlipidemia) HTN (hypertension) Seasonal allergies Surgical History Surgical History H/O basal cell carcinoma excision History of bilateral knee replacement H/O spinal fusion History of laminectomy H/O arthroscopy of left knee History of bladder surgery H/O: hysterectomy Hx of cholecystectomy Hx of appendectomy H/O colonoscopy Hx of tonsillectomy Family History Family History Mother Family history of diabetes mellitus in first degree relative Heart attack Father Family history of lung cancer Social History Social History Smoking status: Never smoker Alcohol intake: current Substance use: never Lack of Transportation: No Lack of Food: Never True Current Housing: I Have Housing Concerned About Future Housing: No Difficulty Paying Gas/Electric Bills: No Difficulty Paying for Meds: No Currently Unemployed: No Education: Associate Degree Difficulty w/ Childcare or Family Care: No Living arrangements: alone Occupation/Education: retired Gender identity (if verbalized by the patient): Female Comments At time of signature, agree with nursing past medical, surgical, social and family history. There is no relevant family history pertinent to the presenting complaint Exam Narrative: GENERAL: Well-appearing, well-nourished, and in no acute distress. HEAD: Normocephalic EYES: PERRLA, conjunctivae clear ENT: Nares clear, turbinates edematous and erythematous, clear discharge. Mucous membranes moist. Right TM red and bulging, Left TM with garcia with dull light reflex; no tragal tenderness. Oropharynx erythematous without lesions. Tonsils not present and throat without exudate, no drooling, no hoarseness, no trismus, uvula midline. NECK: Supple. No lymphadenopathy CHEST: Clear to auscultation, breath sounds equal. No wheezing, rhonchi, rales, or stridor. No respiratory distress, speaks in full sentences. SAO2 100% on room air HEART: Regular rate and rhythm. No murmur heard. SKIN: Warm, dry, no rash. NEURO: Alert and oriented x3. PSYCH: Normal mood and affect Course Course Emergency Course: Patient is aware of diagnosis, understands and agrees to treatment plan.? Anticipatory guidance given.? Patient agrees to follow-up as directed and is aware of reasons to seek care at the emergency department. Portions of this record may have been created with voice recognition software Level of Care: Express Care Visit Vital Signs Vital signs: Vital Signs Temperature 36.3 C L 01/20/25 17:49 Pulse Rate 81 01/20/25 17:49 Respiratory Rate 16 01/20/25 17:49 Blood Pressure 164/73 H 01/20/25 17:49 Pulse Oximetry 100 01/20/25 17:49 Oxygen Delivery Room Air 01/20/25 17:49 Temperature 36.3 C L 01/20/25 17:49 Pulse Rate 81 01/20/25 17:49 Respiratory Rate 16 01/20/25 17:49 Blood Pressure 164/73 H 01/20/25 17:49 Pulse Oximetry 100 01/20/25 17:49 Oxygen Delivery Room Air 01/20/25 17:49 Reviewed Medical Decision Making Differential Diagnosis Differential Diagnosis: otalgia bilateral ears, right otitis media, otitis externa, viral ingection Medical Records Medical records reviewed: Yes I reviewed the external patient's medical records. Vital Signs Vital Signs: Vital Signs Temperature 36.3 C L 01/20/25 17:49 Pulse Rate 81 01/20/25 17:49 Respiratory Rate 16 01/20/25 17:49 Blood Pressure 164/73 H 01/20/25 17:49 Pulse Oximetry 100 01/20/25 17:49 Oxygen Delivery Room Air 01/20/25 17:49 Temperature 36.3 C L 01/20/25 17:49 Pulse Rate 81 01/20/25 17:49 Respiratory Rate 16 01/20/25 17:49 Blood Pressure 164/73 H 01/20/25 17:49 Pulse Oximetry 100 01/20/25 17:49 Oxygen Delivery Room Air 01/20/25 17:49 reviewed Critical Care Time Critical Care Time Critical Care Time: No Discharge Plan Discharge Clinical Impression: Otitis media of right ear Qualifiers: Otitis media type: serous Chronicity: acute Recurrence: non-recurrent Qualified Code(s): H65.01 - Acute serous otitis media, right ear Patient Disposition: Home Condition: Stable Instructions: Antibiotic Form, Ear Infection (GEN) Additional Instructions: Increase fluids especially juices and water Wvef-hbp-[id number] cough and cold medicine of your choice for your symptoms Tylenol or ibuprofen for any fever or pain Zyrtec Claritin or Kyra daily and occlude Coricidin El decongestant heat to the face 20-30 minutes 4-6 times a day for pain Salt water gargles, throat lozenges or throat sprays as desired Antibiotic as directed--finished the medication If your symptoms persist, change or worsen significantly before you can contact your personal physician then please, without delay, go to the emergency department for further evaluation. Follow-up with PCP in 7-10 days or sooner if needed Follow up with PCP soon in regards to your blood pressure which is elevated above threshold for referral. Blood pressure above 120/80 may indicate pre-hypertension. blood 64/73 Patient Language: Chinese Prescriptions: New amoxicillin 500 mg capsule 1,000 mg PO Q12H 7 Days Qty: 28 0RF Rx Instructions: take all doses of oral antibiotic No Action azelastine 137 mcg (0.1 %) aerosol,spray 2 spray intranasal Q12H Qty: 30 3RF Rx Instructions: administer into each nostril losartan 100 mg tablet 100 mg PO DAILY Qty: 90 1RF omeprazole 40 mg capsule,delayed release(DR/EC) 40 mg PO DAILY Qty: 90 1RF hydrochlorothiazide 25 mg tablet 25 mg PO DAILY Qty: 90 1RF lorazepam 0.5 mg tablet 0.5 mg PO TID PRN (Reason: Anxiety) Qty: 90 5RF metformin 500 mg tablet extended release 24 hr 1,000 mg PO BID Qty: 120 5RF Mounjaro 7.5 mg/0.5 mL pen injector 7.5 mg subcut WEEKLY Qty: 2 2RF Follow-up/Referrals: Josh Fonseca DO [Primary Care Provider, Internal Medicine] Time of Disposition: 18:28 Quality [place] Coma Scale Eyes: Open Verbal: Oriented and Alert Motor: Follows Commands [place] Coma Total Score: 15
== END 2025-01-20 18:35 | disposition home or self-care (01) ==
PROVIDERS: Emergency Provider Registered Nurse; PCP Internal Medicine
DX: H65.01 Acute serous otitis media, right ear (principal); E11.9 Type 2 diabetes mellitus without complications; Z79.84 Long term (current) use of oral hypoglycemic drugs; Z79.85 Long-term (current) use of injectable non-insulin antidiabetic drugs; I10 Essential (primary) hypertension; E78.5 Hyperlipidemia, unspecified; K21.9 Gastro-esophageal reflux disease without esophagitis; M19.90 Unspecified osteoarthritis, unspecified site; Z85.828 Personal history of other malignant neoplasm of skin; Z96.653 Presence of artificial knee joint, bilateral
CPT/HCPCS: 99213; G0463